=== PATIENT | female | born 1950 | race Caucasian/White ===

== ENCOUNTER 2017-05-17 11:59 | Day surgery (SDC) | payer MEDICARE, OTHER ==
[~2017-05-17 11:59] MED LIST: Acetaminophen TAB* 325 MG PO PRN; Buffered Lidocaine 0.9% SYRIN* 5 ML/SYR SYRINGE INTRADERM ONE
[2017-05-17] MEDS ORDERED: Midazolam* 1 MG/ML 2 ML VIAL (2 MG) ONE ×2 (13:17→13:33)
[2017-05-17 14:07] VITALS: BP 160/88
[2017-05-17] MEDS ORDERED: Tetracaine 0.5% OPTH.SOL 4 ML* 1 DROP BTL ONE (14:16)
[2017-05-17] MEDS ORDERED: Povidone Iodine 5% OPTH* 30 ML BTL ONE (14:16)
[2017-05-17] MEDS ORDERED: Cyclopentolate 1% OPTH.SOL* 2 ML BTL ONE (14:16)
[2017-05-17] MEDS ORDERED: Phenylephrine 2.5% OPTH.SOL* 2 ML BTL ONE (14:16)
[2017-05-17] MEDS ORDERED: acetaZOLAMIDE TAB* 250 MG ONE (14:16)
[2017-05-17] MEDS ORDERED: Tropicamide 1% OPTH.SOL* BTL ONE (14:16)
[2017-05-17] MEDS ORDERED: Ketorolac 0.5% OPHTH (NF) 0.5 % 5 ML BTL ONE (14:16)
[2017-05-17] MEDS ORDERED: Lidocaine 1% MPF* 2 ML VIAL ONE (14:16)
[2017-05-17] MEDS ORDERED: Neomycin/Polymy/Dex OPHTH.OIN* 3.5 GM ONE (14:16)
--- NOTE | 2017-05-18 12:38 | OP ---
DATE OF OPERATION: 05/17/17 - [facility] DATE OF : 46 SURGEON: Juan Gramajo MD ANESTHESIA: Monitored anesthesia care. PRE-OP DIAGNOSIS: Cataract, right eye. POST-OP DIAGNOSIS: Cataract, right eye. OPERATIVE PROCEDURE: Extracapsular cataract extraction of the right eye with intraocular lens implant. IMPLANTS: SN60WF 20.5 diopter lens to the right eye. COMPLICATIONS: None. DESCRIPTION OF PROCEDURE: The patient was given phenylephrine 2.5% and cyclopentolate 1% eye drops to the operative eye in the preoperative area. The patient was brought to the operating room where a time-out was taken to identify the correct patient, site, and side of surgery. The patient's right eye was prepped and draped in the usual sterile fashion with 5% Betadine. A second time- out was taken to verify the correct patient, site, and side of surgery and correct lens selection. A lid speculum was placed to the right eye. A 1-mm paracentesis blade was used to make a clear corneal incision in the superotemporal position. Preservative free 1% lidocaine was injected into the anterior chamber. DisCoVisc was then injected into the anterior chamber. A 2.75 mm keratome blade was used to make a triplanar incision at the inferotemporal position. A cystotome initiated a capsulorrhexis, which was completed with Utrata forceps in a continuous and curvilinear manner. Hydrodissection of the lens was performed with BSS on a cannula. The lens could be spun in a capsular bag. The phacoemulsification handpiece was used with a [id number] technique to remove the nucleus in its entirety with 25.54 CDE. The I/A handpiece then removed the residual cortical lens material. DisCoVisc was injected to inflate the capsular bag. The planned SN60WF 20.5 diopter lens was injected into the capsular bag. The residual DisCoVisc was removed from the eye with the I/A handpiece. The corneal incisions were hydrated and no leaks occurred at physiologic pressure around 20 mmHg per palpation. The lid speculum was removed and drapes removed. Maxitrol ointment was placed to the surface of the operative eye. An adhesive patch and shield was then placed on the operative eye. The patient was taken to the postoperative area in stable condition. [id number]/[facility] #: [id number] MTDD
== END 2017-05-17 14:20 | disposition home or self-care (01) ==
LOC: OREAST 11:59
PROVIDERS: ATTEND Student in an Organized Health Care Education/Training Program
DX: H25.811 Combined forms of age-related cataract, right eye (principal); H33.302 Unspecified retinal break, left eye; Z79.01 Long term (current) use of anticoagulants; I48.0 Paroxysmal atrial fibrillation; C43.9 Malignant melanoma of skin, unspecified; Z85.3 Personal history of malignant neoplasm of breast; E10.9 Type 1 diabetes mellitus without complications; Z79.4 Long term (current) use of insulin
CPT/HCPCS: A9270-GY; J2250; V2632

== ENCOUNTER 2018-07-18 08:50 | Day surgery (SDC) | payer MEDICARE, OTHER ==
[~2018-07-18 08:50] MED LIST changes: -Acetaminophen TAB* 325 MG PO PRN; -Buffered Lidocaine 0.9% SYRIN* 5 ML/SYR SYRINGE INTRADERM ONE; +Buffered Lidocaine 1% SYRIN* 1 ML/SYRINGE INTRADERM ONE; +Famotidine IV* 10 MG/ML 2 ML (20 mg) IV ONE; +Lactated Ringers 1000 ML Bag* 1,000 ML IV SCH; +Midazolam* 1 MG/ML 5 ML VIAL (5 MG) ONE; +fentaNYL* 50 MCG/ML 2 ML VIAL (100 MCG VIAL) ONE
[2018-07-18] MEDS ORDERED: Famotidine IV* 10 MG/ML 2 ML (20 mg) ONE (09:02)
[2018-07-18] MEDS ORDERED: ceFAZolin 2 GM PREMIX in ORs 2 GM/50 ML BAG ONE (09:02)
[2018-07-18] MEDS ORDERED: fentaNYL* 50 MCG/ML 2 ML VIAL (100 MCG VIAL) ONE (10:36)
[2018-07-18] MEDS ORDERED: HYDROmorphone INJ1* 1 MG/ML SYRINGE IV PRN (10:42)
[2018-07-18] MEDS ORDERED: oxyCODONE/Acetamin 5/325 MG* TAB PO PRN (10:42)
[2018-07-18] MEDS ORDERED: DiMENhydriNATE IV* 50 MG/ML VIAL IV PUSH PRN (10:42)
[2018-07-18] MEDS ORDERED: Naloxone* 0.4 MG/ML 1 ML VIAL IV PRN (10:42)
[2018-07-18] MEDS ORDERED: Succinylcholine* 20 MG/ML 10 ML VIAL ONE (10:57)
[2018-07-18] MEDS ORDERED: Propofol* 10 MG/ML 20 ML BTL ONE (10:57)
[2018-07-18] MEDS ORDERED: Ondansetron INJ* 2 MG/ML VIAL ONE (10:57)
[2018-07-18] MEDS ORDERED: Lidocaine 2% PF * 5 ML VIAL ONE (10:57)
[2018-07-18] MEDS ORDERED: Ketorolac INJ* 30 MG/ML 1 ML VIAL ONE (10:57)
[2018-07-18] MEDS ORDERED: DiMENhydriNATE IV* 50 MG/ML VIAL ONE (10:57)
[2018-07-18] MEDS ORDERED: Dexamethasone IV* 4 MG/ML 1 ML (4 MG) ONE (10:57)
[2018-07-18] MEDS ORDERED: HYDROmorphone INJ1* 1 MG/ML SYRINGE ONE (12:34)
[2018-07-18] MEDS ORDERED: Bupivacaine 0.25% SDV PF* 10 ML VIAL INJ ONE (12:36)
[2018-07-18 15:14] VITALS: BP 161/112
--- NOTE | 2018-07-18 20:28 | OP ---
DATE OF OPERATION: 07/18/18 - [facility] DATE OF : 46 SURGEON: Marcial Cox MD ASSISTANTS: TENNILLE Goodwin and TENNILLE Gonzales. An janitorial assistant was needed for the entirety of the procedure to aid in positioning of the arm and retraction. ANESTHESIOLOGIST: Dr. Wiseman. ANESTHESIA: General. 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 OPERATIVE PROCEDURE: Repair of right clavicle nonunion. NOTE: Please note that this procedure was substantially more difficult than typical open reduction and internal fixation of a clavicle due to the fact it was a nonunion requiring extensive dissection to debride all the interposing fibrous tissue as well as cleaning the edges of the bone so as to ensure good apposition and optimize healing potential. INDICATIONS: Gretchen is 67 years old. She had a long oblique clavicle fracture from the midshaft out towards the distal aspect. It never healed because she has multiple medical comorbidities. It has gone on to nonunion. It is painful. It is catching. We have talked about her options. She definitely wanted to proceed with surgery. ESTIMATED BLOOD LOSS: 20 mL. COMPLICATIONS: None. FINDINGS: See above and below. DESCRIPTION OF PROCEDURE: Gretchen was seen in the preoperative holding area. The right arm including the entirety of the arm and the clavicle were prescrubbed and then prepped and draped in the usual fashion. A time-out was performed. She was positioned in the lady beach chair position. I made a curvilinear incision over the anterior superior aspect of the clavicle. Dissection was carried down through the subcutaneous tissue. The clavipectoral fascia was opened in line with the bone. The nonunion site was encountered. I then took an extensive amount of time, probably took about an hour to debride all of the fibrous tissue very carefully so as to not injure any of the surrounding vascular structures or the lung. Ultimately, I was able to debride back all of the fibrous tissue to the very long oblique fracture. I was able to get a good apposition of the bone. I placed a couple of pointed reduction clamps. After I had it nicely clamped, I went ahead and placed three countersunk 2.4 mm lag screws of the Synthes Locking Modular Mini set. I then went ahead and trialed some different plates of the Synthes Clavicle Plate set. Ultimately, the plate that fit the best and provided what I thought was the best combination of proximal and distal fixation was the distal clavicle plate. This was bent to until it sat just perfectly on the bone. I pinned and clamped it into place. I brought in the C-arm and confirmed the location of the plate radiographically. I then placed 1 screw distally and then all three screws proximally. These were all cortical screws. I made sure the plate is nicely down against the bone. I then placed all of the locking screws distally. I did not place any additional screws along the long oblique fracture fragment, as I did not want to cause the bone to fracture around the 3 very nicely placed lag screws that were generating excellent compression. Once the neutralization plate was in place, I went ahead and irrigated out the wound. The clavipectoral fascia was closed with 3-0 Vicryl over the clavicle. Subcutaneous tissue was reapproximated with 3-0 Vicryl suture. She had a larger body habitus and so there was an inch to 2 inches of subcutaneous tissue there. Skin was closed with 3-0 Monocryl suture and Steri-Strips. 0.25% plain Marcaine had been infiltrated all about the operative area. Wound was dressed and she was taken to the recovery room in stable condition. [id number] #: [id number] ALICIA
== END 2018-07-18 15:06 | disposition home or self-care (01) ==
LOC: OR 08:50
PROVIDERS: ATTEND Orthopaedic Surgery Hand Surgery
DX: S42.021K Displaced fracture of shaft of right clavicle, subsequent encounter for fracture with nonunion (principal); Z85.3 Personal history of malignant neoplasm of breast; Z85.820 Personal history of malignant melanoma of skin; I48.2 Chronic atrial fibrillation; E11.9 Type 2 diabetes mellitus without complications; Z79.4 Long term (current) use of insulin; Z96.41 Presence of insulin pump (external) (internal); Z79.01 Long term (current) use of anticoagulants; G47.33 Obstructive sleep apnea (adult) (pediatric); Z87.891 Personal history of nicotine dependence; D56.3 Thalassemia minor; X58.XXXD Exposure to other specified factors, subsequent encounter; Y92.9 Unspecified place or not applicable
CPT/HCPCS: 76000; C1713; C1776; J0330; J0690; J1100; J1170; J1240; J1885; J2250; J2405; J2704; J3010; J3490

== ENCOUNTER 2020-06-30 12:13 | Observation (INO) ==
[2020-06-30 14:12] LABS: ABS Basophils 0.1 10^3/ul (0-0.2); ABS Eosinophils 0.1 10^3/ul (0-0.6); ABS Lymphocytes 0.8 10^3/ul (1.0-4.8); ABS Monocytes 1.3 10^3/ul (0-0.8); ABS Neutrophils 7.3 10^3/ul (1.5-7.7); ABS Nucleated RBC 0.1 10^3/ul; Eosinophil % 0.6 %; Hematocrit 34 % (35-47); Hemoglobin 10.7 g/dL (12.0-16.0); INR 2.55 (0.82-1.09); Lymphocyte % 8.3 %; Mean Corpuscular HGB Conc 31 g/dL (31-36); Mean Corpuscular Hemoglobin 22 pg (27-31); Mean Corpuscular Volume 69 fL (80-97); Mean Platelet Volume 9.8 fL (7.4-10.4); Nucleated Red Blood Cells % 0.5; Platelet Count 176 10^3/uL (150-450); Red Blood Count 4.95 10^6 /uL (3.70-4.87); Red Cell Distribution Width 18 % (10-15); White Blood Count 9.6 10^3/uL (3.5-10.8)
[2020-06-30 14:25] LABS: Albumin 4.2 g/dL (3.2-5.2); Albumin/Globulin Ratio 1.8 (1-3); EGFR African American 99.8 (>60); EGFR Non-African American 82.5 (>60); Globulin 2.3 g/dL (2-4); Potassium 4.1 mmol/L (3.5-5.0); Total Bilirubin 2.5 mg/dL (0.2-1.0); Total Protein 6.5 g/dL (6.4-8.9); Troponin I 0.01 ng/mL (<0.03)
[2020-06-30 14:33] LABS: Microcytosis 2+; Polychromasia 1+
[2020-06-30] MEDS ORDERED: Iodixanol (CONTRAST) 320 MG/ML 100 ML SDV IV ONE (15:22)
[2020-06-30] MEDS ORDERED: Ondansetron 4 mg VIAL 2 MG/ML 2 ml VIAL IV PRN (17:23)
[2020-06-30] MEDS ORDERED: Magnesium Hydroxide LIQ 30 ML UDC PO PRN (17:23)
[2020-06-30] MEDS ORDERED: Enoxaparin 40 MG/0.4 ML SYR SUBCUT SCH (18:00)
[2020-07-01] MEDS ORDERED: Regadenoson 0.4 MG/5 ML SYRINGE ONE (07:48)
[2020-07-01] MEDS ORDERED: Aminophylline 25 MG/ML VIAL ONE (07:48)
[2020-07-01 08:05] VITALS: BP 143/78
[2020-07-01 09:48] LABS: HDL Cholesterol 86.8 mg/dL
== END 2020-07-01 13:00 | disposition home or self-care (01) ==
LOC: ED 12:13 → MEDTELE 12:13
PROVIDERS: ADMIT Hospitalist; ATTEND Hospitalist

== ENCOUNTER 2022-05-03 10:09 | Inpatient (IN) ==
[2022-05-03] MEDS ORDERED: NS 0.9% 1000 ml BAG 1,000 ML IV ONE (11:19)
[2022-05-03] MEDS ORDERED: cefTRIAXone 1 gm/50 mL D5W 1 GM/50 ML BAG IV ONE (11:19)
[2022-05-03] MEDS ORDERED: Furosemide 40 mg/4 ml IV VIAL IV SLOW PU ONE (11:54)
[2022-05-03 12:15] LABS: ABS Lymphocytes 0.5 10^3/ul (1.0-4.8); ABS Monocytes 0.6 10^3/ul (0-0.8); ABS Neutrophils 5.5 10^3/ul (1.5-7.7); Hematocrit 31 % (35-47); Hemoglobin 9.9 g/dL (12.0-16.0); Lymphocyte % 8.2 %; Mean Corpuscular HGB Conc 32 g/dL (31-36); Mean Corpuscular Hemoglobin 21 pg (27-31); Mean Corpuscular Volume 66 fL (80-97); Mean Platelet Volume 9.2 fL (7.4-10.4); Nucleated Red Blood Cells % 0.2; Platelet Count 175 10^3/uL (150-450); Red Blood Count 4.72 10^6 /uL (3.70-4.87); Red Cell Distribution Width 17 % (10-15); White Blood Count 6.6 10^3/uL (3.5-10.8)
[2022-05-03 12:18] LABS: INR 3.85 (0.88-1.18)
[2022-05-03 13:29] LABS: Albumin/Globulin Ratio 2.1 (1-3); C Reactive Protein 84.74 mg/L (<8.01); Calcium 8.6 mg/dL (8.6-10.3); Creatinine, Serum 0.66 mg/dL (0.51-0.95); Globulin 1.9 g/dL (2-4); Phosphorus 3.7 mg/dL (2.5-5.0); Potassium 3.6 mmol/L (3.5-5.0); Total Protein 5.9 g/dL (6.4-8.9); eGFR CKD-EPI 92.6 (>60)
[2022-05-03] MEDS ORDERED: Iodixanol (CONTRAST) 320 MG/ML 100 ML SDV IV ONE (13:32)
[2022-05-03 13:35] LABS: High Sensitivity Troponin 1 Hr 9 pg/mL (<15)
[2022-05-03] MEDS ORDERED: Metoprolol Tartrate 5 mg VIAL 5 ml VIAL (1 mg/ml) ONE (14:37)
[2022-05-03] MEDS: Metoprolol Tartrate 5 mg VIAL 5 ml VIAL (1 mg/ml) IV ONE (14:48)
[2022-05-03] MEDS ORDERED: Metoprolol Succinate XL 200 mg TAB PO SCH (16:00)
[2022-05-03] MEDS ORDERED: Metoprolol Tartrate 5 mg VIAL 5 ml VIAL (1 mg/ml) IV PRN (16:18)
[2022-05-03] MEDS ORDERED: Metoprolol Tartrate 5 mg VIAL 5 ml VIAL (1 mg/ml) IV ONE (16:18)
[2022-05-03] MEDS: Albuterol/Ipratropium NEB.SOL (2.5/0.5 MG) 3 ML NEB.SOLN INH SCH ×2 (17:15→21:03)
[2022-05-03 17:53] LABS: Urine Appearance Clear; Urine Bilirubin Negative (Negative); Urine Blood 1+ (Negative); Urine Color Yellow; Urine Glucose Negative (Negative); Urine Ketones Negative (Negative); Urine Nitrite Negative (Negative); Urine Protein Negative (Negative); Urine Specific Gravity 1.038 (1.002-1.030); Urine Urobilinogen Negative (Negative)
[2022-05-03 18:10] LABS: Urine Bacteria Absent (Absent); Urine Red Blood Cell Trace(0-2/hpf) (Absent); Urine Squamous Epithelial Cell Present (Absent); Urine White Blood Cell Absent (Absent)
[2022-05-03] MEDS ORDERED: Magnesium Sulf 4 GM/100 ML IV 4,000 MG/100 ML BAG IVPB ONE (19:00)
[2022-05-03] MEDS ORDERED: Dextrose 50% Syringe 50 ml 25 GM/50 ML SYRINGE IV PUSH PRN (19:06)
[2022-05-03 19:51] LABS: TSH Ultra Thyroid Stim Horm 0.64 mcIU/mL (0.34-5.60)
[2022-05-03] MEDS ORDERED: Insulin LISPRO FOR INSULIN PUMP SUBCUT SCH (23:00)
[2022-05-04] MEDS: Metoprolol Tartrate 5 mg VIAL 5 ml VIAL (1 mg/ml) IV ONE (00:44)
[2022-05-04] MEDS: guaiFENesin/CODIENE 100mg/10mg 5 ML UDC PO PRN ×4 (02:02→20:39)
[2022-05-04] MEDS: Albuterol/Ipratropium NEB.SOL (2.5/0.5 MG) 3 ML NEB.SOLN INH SCH ×3 (05:27→22:27)
[2022-05-04 07:23] LABS: ABS Lymphocytes 0.5 10^3/ul (1.0-4.8); ABS Monocytes 0.7 10^3/ul (0-0.8); ABS Neutrophils 4.3 10^3/ul (1.5-7.7); Eosinophil % 0.1 %; Hematocrit 30 % (35-47); Hemoglobin 9.6 g/dL (12.0-16.0); Mean Corpuscular HGB Conc 32 g/dL (31-36); Mean Corpuscular Hemoglobin 21 pg (27-31); Mean Corpuscular Volume 66 fL (80-97); Mean Platelet Volume 9.3 fL (7.4-10.4); Nucleated Red Blood Cells % 0.2; Platelet Count 142 10^3/uL (150-450); Red Blood Count 4.53 10^6 /uL (3.70-4.87); Red Cell Distribution Width 17 % (10-15); White Blood Count 5.5 10^3/uL (3.5-10.8)
[2022-05-04 08:38] LABS: Anion Gap 12 mmol/L (2-11); Blood Urea Nitrogen 9 mg/dL (6-24); CO2 Carbon Dioxide 28 mmol/L (22-32); Chloride 90 mmol/L (101-111); Creatinine, Serum 0.53 mg/dL (0.51-0.95); Glucose 111 mg/dL (70-100); Magnesium 1.7 mg/dL (1.9-2.7); Potassium 3.1 mmol/L (3.5-5.0); Sodium 130 mmol/L (135-145); eGFR CKD-EPI 97.6 (>60)
[2022-05-04] MEDS ORDERED: cefTRIAXone 1 gm/50 mL D5W 1 GM/50 ML BAG IV SCH (09:00)
[2022-05-04] MEDS: Albuterol HFA INHALER 8 gm MDI INH PRN (09:20)
[2022-05-04] MEDS ORDERED: Magnesium Sulfate IV 3 GM in NS 0.9% 100 ml BAG 100 ML IVPB ONE (13:45)
[2022-05-04] MEDS ORDERED: Potassium Chlor 20 meq TAB.ER PO ONE (13:46)
[2022-05-04 14:24] LABS: % Iron Saturation 8 % (15-55); .Transferrin 172 mg/dL (203-362); Iron < 20 ug/dL (50-212); Total Iron Binding Capacity 241 mcg/dL (250-450); Transferrin 172 mg/dL (203-362); Unsaturated Iron Binding 221 ug/dL
[2022-05-04 14:44] LABS: Ferritin 396.8 ng/mL (11-307)
[2022-05-05 06:24] LABS: ABS Lymphocytes 0.8 10^3/ul (1.0-4.8); ABS Monocytes 0.7 10^3/ul (0-0.8); Hematocrit 29 % (35-47); Hemoglobin 9.2 g/dL (12.0-16.0); Lymphocyte % 17.7 %; Mean Corpuscular HGB Conc 32 g/dL (31-36); Mean Corpuscular Hemoglobin 21 pg (27-31); Mean Corpuscular Volume 66 fL (80-97); Nucleated Red Blood Cells % 0.2; Platelet Count 135 10^3/uL (150-450); Red Blood Count 4.38 10^6 /uL (3.70-4.87); Red Cell Distribution Width 17 % (10-15); White Blood Count 4.6 10^3/uL (3.5-10.8)
[2022-05-05 06:37] LABS: Creatinine, Serum 0.49 mg/dL (0.51-0.95); Magnesium 1.7 mg/dL (1.9-2.7); Potassium 3.4 mmol/L (3.5-5.0); eGFR CKD-EPI 99.5 (>60)
[2022-05-05] MEDS: Albuterol/Ipratropium NEB.SOL (2.5/0.5 MG) 3 ML NEB.SOLN INH SCH ×3 (07:14→21:45)
[2022-05-05] MEDS: cefTRIAXone 1 gm/50 mL D5W 1 GM/50 ML BAG IV SCH (08:13)
[2022-05-05] MEDS: guaiFENesin/CODIENE 100mg/10mg 5 ML UDC PO PRN ×2 (08:14→23:01)
[2022-05-05] MEDS ORDERED: Magnesium Sulfate IV 3 GM in NS 0.9% 100 ml BAG 100 ML IVPB ONE (09:10)
[2022-05-05] MEDS: Albuterol HFA INHALER 8 gm MDI INH PRN (10:46)
[2022-05-06] MEDS: Albuterol/Ipratropium NEB.SOL (2.5/0.5 MG) 3 ML NEB.SOLN INH SCH ×3 (06:59→19:17)
[2022-05-06 07:05] LABS: Hematocrit 28 % (35-47); Hemoglobin 9.2 g/dL (12.0-16.0); Mean Corpuscular HGB Conc 33 g/dL (31-36); Mean Corpuscular Hemoglobin 21 pg (27-31); Mean Corpuscular Volume 65 fL (80-97); Mean Platelet Volume 8.8 fL (7.4-10.4); Platelet Count 151 10^3/uL (150-450); Red Blood Count 4.29 10^6 /uL (3.70-4.87); Red Cell Distribution Width 16 % (10-15); White Blood Count 3.8 10^3/uL (3.5-10.8)
[2022-05-06 07:10] LABS: Calcium 8.6 mg/dL (8.6-10.3); Creatinine, Serum 0.48 mg/dL (0.51-0.95); Magnesium 1.8 mg/dL (1.9-2.7); Potassium 3.5 mmol/L (3.5-5.0)
[2022-05-06 07:57] LABS: ABS Lymphocytes 0.6 10^3/ul (1.0-4.8); ABS Monocytes 0.6 10^3/ul (0-0.8); ABS Neutrophils 2.6 10^3/ul (1.5-7.7); Lymphocyte % 15.1 %; Nucleated Red Blood Cells % 0.3
[2022-05-06] MEDS: cefTRIAXone 1 gm/50 mL D5W 1 GM/50 ML BAG IV SCH (08:16)
[2022-05-06] MEDS: methylPREDNISolone SOD SUCC 40 mg/ml 1 ml VIAL IV SCH ×2 (08:17→17:23)
[2022-05-06] MEDS ORDERED: Metoprolol Succinate XL 200 mg TAB PO SCH (09:00)
[2022-05-06] MEDS ORDERED: Ferric Gluconate IV 250 MG in NS 0.9% 250 ml 200 ML IVPB SCH (16:00)
[2022-05-07] MEDS: methylPREDNISolone SOD SUCC 40 mg/ml 1 ml VIAL IV SCH ×2 (01:09→09:59)
[2022-05-07] MEDS: guaiFENesin/CODIENE 100mg/10mg 5 ML UDC PO PRN ×2 (01:15→07:46)
[2022-05-07 05:50] LABS: Hematocrit 31 % (35-47); Hemoglobin 9.7 g/dL (12.0-16.0); Mean Corpuscular HGB Conc 31 g/dL (31-36); Mean Corpuscular Hemoglobin 20 pg (27-31); Mean Corpuscular Volume 64 fL (80-97); Mean Platelet Volume 8.4 fL (7.4-10.4); Platelet Count 214 10^3/uL (150-450); Red Blood Count 4.85 10^6 /uL (3.70-4.87); Red Cell Distribution Width 17 % (10-15); White Blood Count 4.7 10^3/uL (3.5-10.8)
[2022-05-07 06:09] LABS: Calcium 9.2 mg/dL (8.6-10.3); Creatinine, Serum 0.52 mg/dL (0.51-0.95); Magnesium 1.7 mg/dL (1.9-2.7); Potassium 3.8 mmol/L (3.5-5.0)
[2022-05-07] MEDS: Albuterol/Ipratropium NEB.SOL (2.5/0.5 MG) 3 ML NEB.SOLN INH SCH ×2 (07:05→12:58)
[2022-05-07] MEDS ORDERED: Magnesium Sulfate IV 3 GM in NS 0.9% 100 ml BAG 100 ML IVPB ONE (07:06)
[2022-05-07] MEDS: cefTRIAXone 1 gm/50 mL D5W 1 GM/50 ML BAG IV SCH (09:59)
[2022-05-07 14:15] VITALS: BP 135/71
== END 2022-05-07 15:37 | disposition home or self-care (01) | DRG 193 ==
LOC: ED 10:09 → EDHOLD 10:09 → SUATTDRO 05-04 10:34 → EDHOLD 05-04 12:15 → MEDTELE 05-04 12:23
PROVIDERS: ADMIT Family Medicine; ATTEND Hospitalist

== ENCOUNTER 2023-01-19 05:45 | Inpatient (IN) ==
[~2023-01-19 05:45] MED LIST changes: +Buffered Lidocaine 1% SYRIN 1 ml INTRADERM ONE; -Buffered Lidocaine 1% SYRIN* 1 ML/SYRINGE INTRADERM ONE; -Famotidine IV* 10 MG/ML 2 ML (20 mg) IV ONE; +HYDROcodone/ACETAMIN 5/325 mg TAB PO PRN; -Lactated Ringers 1000 ML Bag* 1,000 ML IV SCH; +Metoclopramide 5 MG/ML VIAL (10 mg) IV PRN; -Midazolam* 1 MG/ML 5 ML VIAL (5 MG) ONE; +Naloxone 0.4 mg VIAL 0.4 mg/ml 1 ml VIAL IV PRN; +Ondansetron 4 mg VIAL 2 MG/ML 2 ml VIAL IV PRN; +Scopolamine 1 mg/72hr PATCH TRANSDERM ONE; +fentaNYL 100 mcg/2 ml 50 MCG/ML VIAL IV PRN; -fentaNYL* 50 MCG/ML 2 ML VIAL (100 MCG VIAL) ONE
[2023-01-19] MEDS ORDERED: Scopolamine 1 mg/72hr PATCH ONE (06:08)
[2023-01-19 06:35] LABS: Rapid COVID-19 Molecular Undetected (Undetected)
[2023-01-19] MEDS ORDERED: ceFAZolin 2 GM in NS PREMIX 2 GM/100 ML BAG IVPB ONE (06:36)
[2023-01-19] MEDS ORDERED: Lidocaine 2% PF 5 ML VIAL ONE (07:09)
[2023-01-19] MEDS ORDERED: Ondansetron 4 mg VIAL 2 MG/ML 2 ml VIAL ONE ×2 (07:09→13:15)
[2023-01-19] MEDS ORDERED: Propofol 10 MG/ML 20 ML BTL ONE (07:09)
[2023-01-19] MEDS ORDERED: Dexamethasone IV 4 MG/ML VIAL 1 ml VIAL ONE (07:09)
[2023-01-19] MEDS ORDERED: Rocuronium 50 mg VIAL 10 mg/ml 5 ml VIAL (50 mg) ONE ×3 (07:10→10:57)
[2023-01-19] MEDS ORDERED: Phenylephrine IV 10 MG/ML 1 ml VIAL ONE (07:10)
[2023-01-19] MEDS ORDERED: fentaNYL 250 mcg/5 ml 50 MCG/ML 5 ml VIAL (250 MCG) ONE (07:10)
[2023-01-19] MEDS ORDERED: Midazolam 2 mg/2 ml VIAL 1 mg/ml 2 ml VIAL (2 mg) ONE (07:10)
[2023-01-19] MEDS ORDERED: Heparin 5000 UNITS/ML 1 mL VIAL ONE (07:28)
[2023-01-19] MEDS ORDERED: Lidocaine 1% w EPI 1:100,000 MDV 20 ML VIAL ONE (07:37)
[2023-01-19] MEDS ORDERED: Bupivacaine 0.5% SDV PF 30ML VIAL ONE ×2 (07:37→07:38)
[2023-01-19] MEDS ORDERED: Ertapenem 1 GM in NS 0.9% 50 ML IVPB ONE (08:00)
[2023-01-19] MEDS ORDERED: HYDROmorphone 0.5 MG/0.5 ML SYRINGE ONE (12:27)
[2023-01-19] MEDS ORDERED: Metoclopramide 5 MG/ML VIAL (10 mg) ONE (13:15)
[2023-01-19] MEDS ORDERED: Dextrose 50% Syringe 50 ml 25 GM/50 ML SYRINGE IV PUSH PRN (13:23)
[2023-01-19] MEDS ORDERED: fentaNYL 100 mcg/2 ml 50 MCG/ML VIAL ONE (13:25)
[2023-01-19] MEDS ORDERED: HYDROmorphone 0.5 MG/0.5 ML SYRINGE IV SLOW PU PRN (13:27)
[2023-01-19] MEDS ORDERED: HYDROmorphone 1 MG/1 ML SYRINGE IV SLOW PU PRN (13:27)
[2023-01-19] MEDS ORDERED: Ondansetron 4 mg VIAL 2 MG/ML 2 ml VIAL IV PRN (13:28)
[2023-01-19] MEDS ORDERED: NON FORMULARY MED (Zinc 50 mg Tablet) PO SCH (13:30)
[2023-01-19] MEDS: Lactated Ringers 1000 ml BAG 1,000 ML IV SCH ×2 (15:52→23:40)
[2023-01-19] MEDS: Heparin 5000 UNITS/ML 1 mL VIAL SUBCUT SCH ×2 (15:53→21:12)
[2023-01-20] MEDS: Heparin 5000 UNITS/ML 1 mL VIAL SUBCUT SCH ×3 (06:14→21:24)
[2023-01-20] MEDS: Lactated Ringers 1000 ml BAG 1,000 ML IV SCH (07:33)
[2023-01-20] MEDS: Potassium Chlor 20 meq TAB.ER PO SCH (08:19)
[2023-01-20] MEDS ORDERED: Insulin LISPRO FOR INSULIN PUMP SUBCUT SCH (13:00)
[2023-01-21] MEDS: Heparin 5000 UNITS/ML 1 mL VIAL SUBCUT SCH (06:06)
[2023-01-21] MEDS ORDERED: Vitamin THERAPEUTIC TAB PO SCH (09:00)
[2023-01-21] MEDS: Potassium Chlor 20 meq TAB.ER PO SCH (09:38)
[2023-01-21 13:34] VITALS: BP 108/68
== END 2023-01-21 16:45 | disposition home or self-care (01) | DRG 331 ==
LOC: OR 05:45 → SSU 15:03
PROVIDERS: ADMIT Surgery; ATTEND Surgery

== ENCOUNTER 2023-04-27 15:14 | Inpatient (IN) ==
[2023-04-27 16:25] LABS: ABS Lymphocytes 0.8 10^3/uL (1.0-4.8); ABS Monocytes 1.2 10^3/uL (0.0-0.9); ABS Neutrophils 2.7 10^3/uL (1.5-7.6); ABS Nucleated RBC 0.01 10^3/ul; Eosinophil % 0.9 %; Hematocrit 29.1 % (35-45); Hemoglobin 9.5 g/dL (11.5-14.3); Lymphocyte % 16.9 %; Mean Corpuscular Hgb Conc 32.5 g/dL (31-36); Mean Corpuscular Volume 67.8 fL (80-97); Mean Platelet Volume 8.7 fL (7.5-11.2); Nucleated Red Blood Cells % 0.2 %/100WBC (0.0-0.8); Platelet Count 158 10^3/uL (150-450); Red Blood Count 4.29 10^6/uL (3.63-4.92); White Blood Count 4.7 10^3/uL (3.8-11.8)
[2023-04-27] MEDS: Potassium Chlor 20 meq TAB.ER PO ONE (16:39)
[2023-04-27] MEDS: Lactated Ringers 1000 ml BAG 1,000 ML IV ONE (16:40)
[2023-04-27] MEDS: KCL 10 MEQ/50 ML IVPREMIX 10 MEQ/50 ML BAG IV ONE (16:40)
[2023-04-27 17:18] LABS: Albumin 3.2 g/dL (3.2-5.2); Albumin/Globulin Ratio 1.8 (1-3); Calcium 6.9 mg/dL (8.6-10.3); Creatinine, Serum 0.65 mg/dL (0.51-0.95); Globulin 1.8 g/dL (2-4); Magnesium 1.4 mg/dL (1.9-2.7); Potassium 2.5 mmol/L (3.5-5.0); Total Bilirubin 1.2 mg/dL (0.2-1.0); eGFR CKD-EPI 92.3 (>60)
[2023-04-27 17:53] LABS: Urine Appearance Clear; Urine Blood Negative (Negative); Urine Color Yellow; Urine Ketones Trace (Negative); Urine Specific Gravity 1.025 (1.002-1.030)
[2023-04-27 17:54] LABS: Urine Nitrite Negative (Negative); Urine Protein Trace (Negative); Urine Urobilinogen 0.2 (Negative) (Negative)
[2023-04-27 17:55] LABS: Urine White Blood Cell Absent /HPF (0-Trace)
[2023-04-27 17:56] LABS: Urine Bacteria Absent /HPF (Absent); Urine Red Blood Cell Absent /HPF (0-Trace); Urine Squamous Epithelial Cell Present /HPF (Absent)
[2023-04-27] MEDS: Magnesium Sulf 4 GM/100 ML IV 4,000 MG/100 ML BAG IVPB ONE (18:02)
[2023-04-27] MEDS: Morphine 4 MG/ML VIAL (1 ml) IV ONE (18:03)
[2023-04-27] MEDS ORDERED: Dextrose 50% Syringe 50 ml 25 GM/50 ML SYRINGE IV PUSH PRN (23:58)
[2023-04-28 00:22] LABS: Calcium 7.3 mg/dL (8.6-10.3); Creatinine, Serum 0.54 mg/dL (0.51-0.95); Potassium 2.8 mmol/L (3.5-5.0); eGFR CKD-EPI 96.6 (>60)
[2023-04-28 00:28] LABS: C Reactive Protein 22.95 mg/L (<8.01)
[2023-04-28] MEDS: Acetaminophen IV 1 GM/100ML 1,000 MG/100 ML BAG IV PRN (00:37)
[2023-04-28] MEDS: Lactated Ringers 1000 ml BAG 1,000 ML IV SCH (00:37)
[2023-04-28] MEDS: KCL 20 MEQ/100 ML IVPREMIX 20 MEQ/100 ML BAG IV SCH ×2 (00:38→12:32)
[2023-04-28 00:49] LABS: Erythrocyte Sed Rate 19 mm/Hr (0-29)
[2023-04-28] MEDS: Morphine 2 MG/ML SYRINGE IV PRN (05:31)
[2023-04-28 06:08] LABS: ABS Lymphocytes 0.7 10^3/uL (1.0-4.8); ABS Monocytes 1.1 10^3/uL (0.0-0.9); ABS Neutrophils 2.6 10^3/uL (1.5-7.6); ABS Nucleated RBC 0.01 10^3/ul; Eosinophil % 1.1 %; Hematocrit 26.5 % (35-45); Hemoglobin 8.7 g/dL (11.5-14.3); Lymphocyte % 16.3 %; Mean Corpuscular Hemoglobin 22.1 pg (27-33); Mean Corpuscular Hgb Conc 32.7 g/dL (31-36); Mean Corpuscular Volume 67.6 fL (80-97); Mean Platelet Volume 8.7 fL (7.5-11.2); Nucleated Red Blood Cells % 0.1 %/100WBC (0.0-0.8); Platelet Count 145 10^3/uL (150-450); Red Blood Count 3.92 10^6/uL (3.63-4.92); Red Cell Distribution Width 21.5 % (12-17); White Blood Count 4.5 10^3/uL (3.8-11.8)
[2023-04-28 06:21] LABS: Calcium 7.4 mg/dL (8.6-10.3); Creatinine, Serum 0.51 mg/dL (0.51-0.95); Potassium 2.9 mmol/L (3.5-5.0); eGFR CKD-EPI 97.9 (>60)
[2023-04-28] MEDS: Potassium Chlor 20 meq TAB.ER PO SCH (09:59)
[2023-04-28] MEDS ORDERED: Dextrose 50% Syringe 50 ml 25 GM/50 ML SYRINGE IV PUSH PRN (13:08)
[2023-04-28] MEDS: Dextrose 50% Syringe 50 ml 25 GM/50 ML SYRINGE IV PUSH PRN (13:47)
[2023-04-28] MEDS: Psyllium PAK PO PRN (16:47)
[2023-04-28 20:54] LABS: Calcium 7.6 mg/dL (8.6-10.3); Creatinine, Serum 0.48 mg/dL (0.51-0.95); Magnesium 1.6 mg/dL (1.9-2.7); Potassium 3.7 mmol/L (3.5-5.0); eGFR CKD-EPI 99.3 (>60)
[2023-04-28] MEDS: Magnesium Sulf 4 GM/100 ML IV 4,000 MG/100 ML BAG IVPB ONE (22:30)
[2023-04-28] MEDS: Potassium Chlor 10 meq TAB PO ONE (22:31)
[2023-04-29 06:03] LABS: ABS Lymphocytes 0.5 10^3/uL (1.0-4.8); ABS Monocytes 1.3 10^3/uL (0.0-0.9); ABS Neutrophils 2.2 10^3/uL (1.5-7.6); ABS Nucleated RBC 0.01 10^3/ul; Eosinophil % 0.6 %; Hematocrit 28.7 % (35-45); Hemoglobin 9.2 g/dL (11.5-14.3); Lymphocyte % 12.2 %; Mean Corpuscular Hemoglobin 22.2 pg (27-33); Mean Corpuscular Hgb Conc 32.2 g/dL (31-36); Mean Corpuscular Volume 69.1 fL (80-97); Mean Platelet Volume 8.8 fL (7.5-11.2); Nucleated Red Blood Cells % 0.2 %/100WBC (0.0-0.8); Platelet Count 149 10^3/uL (150-450); Red Blood Count 4.15 10^6/uL (3.63-4.92); Red Cell Distribution Width 21.5 % (12-17); White Blood Count 4.1 10^3/uL (3.8-11.8)
[2023-04-29 09:00] LABS: Calcium 7.8 mg/dL (8.6-10.3); Creatinine, Serum 0.57 mg/dL (0.51-0.95); eGFR CKD-EPI 95.3 (>60)
[2023-04-29] MEDS: Insulin GLARGINE 100 un/ml 10 ml VIAL SUBCUT SCH (09:15)
[2023-04-29 11:37] LABS: Cytomegalovirus IgG Antibody Negative (Negative)
[2023-04-30 06:10] LABS: Hematocrit 29.1 % (35-45); Hemoglobin 9.3 g/dL (11.5-14.3); Mean Corpuscular Hgb Conc 31.8 g/dL (31-36); Mean Platelet Volume 8.7 fL (7.5-11.2); Platelet Count 169 10^3/uL (150-450); Red Blood Count 4.21 10^6/uL (3.63-4.92); Red Cell Distribution Width 21.7 % (12-17); White Blood Count 3.3 10^3/uL (3.8-11.8)
[2023-04-30 06:25] LABS: Calcium 7.7 mg/dL (8.6-10.3); Creatinine, Serum 0.51 mg/dL (0.51-0.95); Magnesium 1.3 mg/dL (1.9-2.7); Potassium 3.1 mmol/L (3.5-5.0); eGFR CKD-EPI 97.9 (>60)
[2023-04-30] MEDS: Potassium Chlor 20 meq TAB.ER PO ONE ×3 (08:29→18:17)
[2023-04-30] MEDS: Magnesium Sulf 4 GM/100 ML IV 4,000 MG/100 ML BAG IVPB ONE (09:07)
[2023-04-30] MEDS ORDERED: KCL 20 MEQ/100 ML IVPREMIX 20 MEQ/100 ML BAG IV SCH (13:00)
[2023-04-30 14:30] LABS: Adenovirus F40/41 Negative (Negative); Astrovirus Negative (Negative); Cryptosporidium species Negative (Negative); Cyclospora cayetanensis Negative (Negative); Entamoeba histolytica Negative (Negative); Enteroaggregative E.coli(EAEC) Negative (Negative); Enteropathogenic Ecoli(EPEC) Negative (Negative); Enterotoxigenic Ecoli(ETEC) Negative (Negative); Norovirus GI/GII Negative (Negative); Plesiomonas shigelloides Negative (Negative); Salmonella species Negative (Negative); Sapovirus Negative (Negative); Shiga toxin producing E. coli Negative (Negative); Shigella/Enteroinvasive E.coli Negative (Negative); Specimen Source STOOL; Vibrio cholerae Negative (Negative); Yersinia species Negative (Negative)
[2023-04-30 16:06] LABS: Calcium 7.8 mg/dL (8.6-10.3); Creatinine, Serum 0.5 mg/dL (0.51-0.95); eGFR CKD-EPI 98.4 (>60)
[2023-05-01] MEDS: Bismuth Subsalicylate (BTL) 525 MG/30 ML (BULK BTL) PO PRN (02:18)
[2023-05-01 07:08] LABS: Hematocrit 27.2 % (35-45); Hemoglobin 8.8 g/dL (11.5-14.3); Mean Corpuscular Hemoglobin 22.4 pg (27-33); Mean Corpuscular Hgb Conc 32.5 g/dL (31-36); Mean Corpuscular Volume 68.9 fL (80-97); Mean Platelet Volume 8.7 fL (7.5-11.2); Platelet Count 149 10^3/uL (150-450); Red Blood Count 3.95 10^6/uL (3.63-4.92); White Blood Count 2.8 10^3/uL (3.8-11.8)
[2023-05-01 07:53] LABS: Calcium 7.7 mg/dL (8.6-10.3); Creatinine, Serum 0.47 mg/dL (0.51-0.95); Magnesium 1.4 mg/dL (1.9-2.7); Potassium 3.1 mmol/L (3.5-5.0); eGFR CKD-EPI 99.8 (>60)
[2023-05-01] MEDS: Potassium Chloride LIQUID 20 MEQ/15 ML LIQUID PO ONE (09:58)
[2023-05-01] MEDS: Magnesium Sulf 4 GM/100 ML IV 4,000 MG/100 ML BAG IVPB ONE (09:58)
[2023-05-01] MEDS: Insulin GLARGINE 100 un/ml 10 ml VIAL SUBCUT SCH (09:59)
[2023-05-02 07:11] LABS: ABS Eosinophils 0.1 10^3/uL (0.0-0.5); ABS Lymphocytes 0.9 10^3/uL (1.0-4.8); ABS Monocytes 0.7 10^3/uL (0.0-0.9); ABS Nucleated RBC 0.01 10^3/ul; Eosinophil % 5.1 %; Hematocrit 26.2 % (35-45); Hemoglobin 8.5 g/dL (11.5-14.3); Lymphocyte % 32.6 %; Mean Corpuscular Hemoglobin 22.3 pg (27-33); Mean Corpuscular Hgb Conc 32.5 g/dL (31-36); Mean Corpuscular Volume 68.5 fL (80-97); Mean Platelet Volume 8.5 fL (7.5-11.2); Nucleated Red Blood Cells % 0.2 %/100WBC (0.0-0.8); Platelet Count 144 10^3/uL (150-450); Red Blood Count 3.82 10^6/uL (3.63-4.92); Red Cell Distribution Width 22.2 % (12-17); White Blood Count 2.7 10^3/uL (3.8-11.8)
[2023-05-02 07:22] LABS: Calcium 7.6 mg/dL (8.6-10.3); Creatinine, Serum 0.48 mg/dL (0.51-0.95); Magnesium 1.3 mg/dL (1.9-2.7); Phosphorus 3.3 mg/dL (2.5-5.0); eGFR CKD-EPI 99.3 (>60)
[2023-05-02] MEDS: Magnesium Sulf 4 GM/100 ML IV 4,000 MG/100 ML BAG IVPB ONE ×2 (08:35→22:05)
[2023-05-02] MEDS: Potassium Chlor 20 meq TAB.ER PO SCH (08:36)
[2023-05-02] MEDS: Lactated Ringers 1000 ml BAG 1,000 ML IV SCH (12:40)
[2023-05-02] MEDS: Potassium Chlor 20 meq TAB.ER PO ONE (21:58)
[2023-05-03 02:08] LABS: Calcium 7.4 mg/dL (8.6-10.3); Creatinine, Serum 0.51 mg/dL (0.51-0.95); Magnesium 2.5 mg/dL (1.9-2.7); Potassium 3.8 mmol/L (3.5-5.0); eGFR CKD-EPI 97.9 (>60)
[2023-05-03 05:35] LABS: Hematocrit 26.2 % (35-45); Hemoglobin 8.3 g/dL (11.5-14.3); Mean Corpuscular Hgb Conc 31.8 g/dL (31-36); Mean Platelet Volume 8.7 fL (7.5-11.2); Platelet Count 145 10^3/uL (150-450); Red Blood Count 3.79 10^6/uL (3.63-4.92); Red Cell Distribution Width 22.3 % (12-17); White Blood Count 2.6 10^3/uL (3.8-11.8)
[2023-05-03 06:11] LABS: Anion Gap 8 mmol/L (2-16); Blood Urea Nitrogen 5 mg/dL (6-24); CO2 Carbon Dioxide 17 mmol/L (22-32); Chloride 118 mmol/L (101-111); Creatinine, Serum < 0.30 mg/dL (0.51-0.95); Glucose 131 mg/dL (70-100); Magnesium 1.3 mg/dL (1.9-2.7); Potassium 2.8 mmol/L (3.5-5.0); Sodium 143 mmol/L (135-145); eGFR CKD-EPI 111.2 (>60)
[2023-05-03 06:44] LABS: ALT 13 U/L (7-52); AST 14 U/L (13-39); Albumin 1.7 g/dL (3.2-5.2); Albumin/Globulin Ratio 1.3 (1-3); Alkaline Phosphatase 92 U/L (35-149); Direct Bilirubin 0.1 mg/dL (0.03-0.18); Globulin 1.3 g/dL (2-4); Indirect Bilirubin 0.4 mg/dL (0.3-1.0); Total Bilirubin 0.5 mg/dL (0.2-1.0); Total Protein < 3.0 g/dL (6.4-8.9)
[2023-05-03] MEDS ORDERED: Calcium Gluconate 1 GM/10 ML VIAL (in Pyxis) IV PUSH ONE (07:16)
[2023-05-03] MEDS: KCL 20 MEQ/100 ML IVPREMIX 20 MEQ/100 ML BAG IV SCH (08:20)
[2023-05-03] MEDS: Magnesium Sulf 4 GM/100 ML IV 4,000 MG/100 ML BAG IVPB ONE ×2 (08:24→16:05)
[2023-05-03] MEDS ORDERED: CALCIUM GLUCONATE 1GM/50ML NS BAG IV SCH (08:30)
[2023-05-03] MEDS: Lactated Ringers 1000 ml BAG 1,000 ML IV SCH (10:53)
[2023-05-03] MEDS: Potassium Chlor 20 meq TAB.ER PO ONE (16:03)
[2023-05-03 16:36] LABS: Creatinine, Serum 0.62 mg/dL (0.51-0.95); Potassium 4.3 mmol/L (3.5-5.0); eGFR CKD-EPI 93.4 (>60)
[2023-05-03 17:24] LABS: Albumin 2.9 g/dL (3.2-5.2); Albumin/Globulin Ratio 1.3 (1-3); Globulin 2.3 g/dL (2-4); Total Bilirubin 0.6 mg/dL (0.2-1.0); Total Protein 5.2 g/dL (6.4-8.9)
[2023-05-03] MEDS: Diphenoxylat/Atrop 2.5-0.025mg TAB PO SCH (20:38)
[2023-05-04 04:45] LABS: Hematocrit 27.6 % (35-45); Hemoglobin 8.9 g/dL (11.5-14.3); Mean Corpuscular Hemoglobin 22.1 pg (27-33); Mean Corpuscular Hgb Conc 32.1 g/dL (31-36); Mean Corpuscular Volume 68.8 fL (80-97); Mean Platelet Volume 8.5 fL (7.5-11.2); Platelet Count 161 10^3/uL (150-450); Red Blood Count 4.01 10^6/uL (3.63-4.92); Red Cell Distribution Width 22.8 % (12-17); White Blood Count 3.6 10^3/uL (3.8-11.8)
[2023-05-04 04:57] LABS: ABS Eosinophils 0.1 10^3/uL (0.0-0.5); ABS Lymphocytes 1.2 10^3/uL (1.0-4.8); ABS Monocytes 0.8 10^3/uL (0.0-0.9); ABS Neutrophils 1.5 10^3/uL (1.5-7.6); ABS Nucleated RBC 0.01 10^3/ul; Eosinophil % 3.9 %; Lymphocyte % 32.9 %; Nucleated Red Blood Cells % 0.3 %/100WBC (0.0-0.8)
[2023-05-04 05:20] LABS: Albumin 2.8 g/dL (3.2-5.2); Albumin/Globulin Ratio 1.5 (1-3); Calcium 8.1 mg/dL (8.6-10.3); Creatinine, Serum 0.54 mg/dL (0.51-0.95); Globulin 1.9 g/dL (2-4); Magnesium 1.9 mg/dL (1.9-2.7); Potassium 4.9 mmol/L (3.5-5.0); Total Bilirubin 0.7 mg/dL (0.2-1.0); Total Protein 4.7 g/dL (6.4-8.9); eGFR CKD-EPI 96.6 (>60)
[2023-05-04] MEDS: Magnesium Sulfate 2 gm BAG 2 GM/50 ML BAG IVPB ONE (08:11)
[2023-05-04] MEDS: Lactated Ringers 1000 ml BAG 1,000 ML IV SCH (12:36)
[2023-05-04 16:09] LABS: Norovirus G1 PCR Positive (Negative); Norovirus G2 PCR Negative (Negative)
[2023-05-05 06:37] LABS: Hematocrit 25.7 % (35-45); Hemoglobin 8.2 g/dL (11.5-14.3); Mean Corpuscular Hemoglobin 22.1 pg (27-33); Mean Corpuscular Hgb Conc 31.8 g/dL (31-36); Mean Corpuscular Volume 69.5 fL (80-97); Mean Platelet Volume 8.5 fL (7.5-11.2); Platelet Count 150 10^3/uL (150-450); Red Cell Distribution Width 22.9 % (12-17); White Blood Count 3.9 10^3/uL (3.8-11.8)
[2023-05-05 07:22] LABS: Creatinine, Serum 0.62 mg/dL (0.51-0.95); Magnesium 1.4 mg/dL (1.9-2.7); Potassium 4.7 mmol/L (3.5-5.0); eGFR CKD-EPI 93.4 (>60)
[2023-05-05 09:37] VITALS: BP 113/74
[2023-05-05] MEDS: Magnesium Sulf 4 GM/100 ML IV 4,000 MG/100 ML BAG IVPB ONE (10:52)
== END 2023-05-05 15:35 | disposition home or self-care (01) | DRG 394 ==
LOC: EDHOLD 15:14 → ED 15:14 → SUATTDRO 20:36 → EDHOLD 04-28 07:18 → MEDTELE 04-28 08:39 → SUATTDRO 04-29 08:00
PROVIDERS: ADMIT Hospitalist; ATTEND Internal Medicine

== ENCOUNTER 2023-07-31 10:08 | Observation (INO) ==
[2023-07-31] MEDS: Albuterol/Ipratropium NEB.SOL (2.5/0.5 MG) 3 ML NEB.SOLN INH ONE (11:29)
[2023-07-31 11:32] LABS: Mean Corpuscular Hemoglobin 23.7 pg (27-33); Mean Corpuscular Hgb Conc 31.1 g/dL (31-36); Mean Corpuscular Volume 76.1 fL (80-97); Red Blood Count 3.82 10^6/uL (3.63-4.92); Red Cell Distribution Width 20.9 % (12-17); White Blood Count 4.2 10^3/uL (3.8-11.8)
[2023-07-31 11:43] LABS: Albumin 3.7 g/dL (3.2-5.2); Albumin/Globulin Ratio 1.9 (1-3); Calcium 8.8 mg/dL (8.6-10.3); Creatinine, Serum 0.55 mg/dL (0.51-0.95); Globulin 1.9 g/dL (2-4); Potassium 3.9 mmol/L (3.5-5.0); Total Bilirubin 1.9 mg/dL (0.2-1.0); Total Protein 5.6 g/dL (6.4-8.9); eGFR CKD-EPI 96.1 (>60)
[2023-07-31 11:52] LABS: INR 2.07 (0.83-1.13)
[2023-07-31 11:54] LABS: ABS Eosinophils 0.1 10^3/uL (0.0-0.5); ABS Lymphocytes 0.9 10^3/uL (1.0-4.8); ABS Monocytes 0.9 10^3/uL (0.0-0.9); ABS Neutrophils 2.3 10^3/uL (1.5-7.6); ABS Nucleated RBC 0.06 10^3/ul; Basophilic Stippling 1+; Eosinophil % 1.4 %; Lymphocyte % 20.6 %; Mean Platelet Volume 10.2 fL (7.5-11.2); Nucleated Red Blood Cells % 1.3 %/100WBC (0.0-0.8); Platelet Count 110 10^3/uL (150-450); Polychromasia 2+
[2023-07-31] MEDS: Iodixanol (CONTRAST) 320 MG/ML 100 ML SDV IV ONE (12:52)
[2023-07-31 13:36] LABS: High Sensitivity Troponin 1 Hr 9 pg/mL (<15)
[2023-07-31] MEDS: Piperacillin/Tazobac 3.375 BAG 3.375 GM/100 ML BAG IV ONE (14:02)
[2023-07-31 14:32] LABS: C Reactive Protein 5.91 mg/L (<8.01)
[2023-07-31 14:50] LABS: Magnesium 1.5 mg/dL (1.9-2.7)
[2023-07-31] MEDS: Furosemide 20 mg/2 ml IV VIAL IV SLOW PU ONE (15:40)
[2023-07-31] MEDS: Magnesium Sulf 4 GM/100 ML IV 4,000 MG/100 ML BAG IVPB ONE (17:39)
[2023-07-31] MEDS: Sulfur Hexaflouride MICROSPHR 25 MG VIAL IV ONE (20:23)
[2023-07-31] MEDS: cefTRIAXone 1 gm/50 mL D5W 1 GM/50 ML BAG IV SCH (23:33)
[2023-08-01] MEDS: Benzocaine/Menthol LOZ PO PRN (00:37)
[2023-08-01] MEDS: cefTRIAXone 1 gm/50 mL D5W 1 GM/50 ML BAG IV SCH (07:51)
[2023-08-01] MEDS: Potassium Chlor 20 meq TAB.ER PO SCH (12:16)
[2023-08-01] MEDS: Pneumococcal 20-Valent Conj 0.5 ML SYR Vaccine IM ONE (12:19)
[2023-08-01 15:06] LABS: TSH Ultra Thyroid Stim Horm 1.6 mcIU/mL (0.34-5.60)
[2023-08-01] MEDS: Furosemide 40 mg/4 ml IV VIAL IV ONE (18:28)
[2023-08-02] MEDS: guaiFENesin 100 mg/5 ml LIQ unit dose cup PO PRN (05:42)
[2023-08-02 06:19] LABS: Hematocrit 29.1 % (35-45); Hemoglobin 9.1 g/dL (11.5-14.3); Mean Corpuscular Hemoglobin 23.6 pg (27-33); Mean Corpuscular Hgb Conc 31.2 g/dL (31-36); Mean Corpuscular Volume 75.8 fL (80-97); Mean Platelet Volume 9.2 fL (7.5-11.2); Platelet Count 93 10^3/uL (150-450); Red Blood Count 3.84 10^6/uL (3.63-4.92); Red Cell Distribution Width 21.2 % (12-17); White Blood Count 3.8 10^3/uL (3.8-11.8)
[2023-08-02 06:37] LABS: C Reactive Protein 6.19 mg/L (<8.01); Calcium 8.7 mg/dL (8.6-10.3); Creatinine, Serum 0.59 mg/dL (0.51-0.95); Magnesium 1.4 mg/dL (1.9-2.7); Potassium 3.3 mmol/L (3.5-5.0); eGFR CKD-EPI 94.5 (>60)
[2023-08-02] MEDS: Vitamin THERAPEUTIC TAB PO SCH (09:30)
[2023-08-02] MEDS: Magnesium Sulf 4 GM/100 ML IV 4,000 MG/100 ML BAG IVPB ONE (09:53)
[2023-08-02] MEDS: Potassium Chlor 20 meq TAB.ER PO SCH (12:01)
[2023-08-02] MEDS: Furosemide 40 mg/4 ml IV VIAL IV ONE (12:01)
[2023-08-02] MEDS ORDERED: Magnesium Hydroxide LIQ 30 ML UDC PO PRN (17:45)
[2023-08-02] MEDS ORDERED: Polyethylene Glycol 3350 17 GM PACKET PO PRN (17:45)
[2023-08-02] MEDS: Senna TAB 8.6 mg TAB PO PRN (19:03)
[2023-08-02] MEDS: Magnesium Hydroxide LIQ 30 ML UDC PO SCH (21:03)
[2023-08-03 06:31] LABS: Creatinine, Serum 0.58 mg/dL (0.51-0.95); Magnesium 1.6 mg/dL (1.9-2.7); Potassium 3.7 mmol/L (3.5-5.0); eGFR CKD-EPI 94.9 (>60)
[2023-08-03] MEDS: Magnesium Sulfate IV 1GM/100ML 1 GM/100 ML BAG IV ONE (08:32)
[2023-08-03] MEDS: Furosemide 40 mg/4 ml IV VIAL IV SCH (08:32)
[2023-08-03] MEDS: Magnesium Hydroxide LIQ 30 ML UDC PO ONE (12:36)
[2023-08-03 13:26] VITALS: BP 112/43
== END 2023-08-03 18:00 | disposition home or self-care (01) ==
LOC: ED 10:08 → EDHOLD 14:23 → SUATTDRO 14:23 → INTOOBSV 14:23 → SSU 18:30
PROVIDERS: ADMIT Hospitalist; ATTEND Hospitalist

== ENCOUNTER 2024-01-09 13:03 | Inpatient (IN) ==
[2024-01-09 14:35] LABS: INR 2.78 (0.85-1.14)
[2024-01-09 14:54] LABS: ABS Basophils 0.1 10^3/uL (0.0-0.1); ABS Eosinophils 0.1 10^3/uL (0.0-0.5); ABS Lymphocytes 0.4 10^3/uL (1.0-4.8); ABS Neutrophils 6.2 10^3/uL (1.5-7.6); ABS Nucleated RBC 0.01 10^3/ul; Hematocrit 27.7 % (35-45); Hemoglobin 8.9 g/dL (11.5-14.3); Lymphocyte % 4.7 %; Mean Corpuscular Hemoglobin 21.4 pg (27-33); Mean Corpuscular Hgb Conc 32.1 g/dL (31-36); Mean Corpuscular Volume 66.8 fL (80-97); Mean Platelet Volume 7.8 fL (7.5-11.2); Nucleated Red Blood Cells % 0.1 %/100WBC (0.0-0.8); Platelet Count 247 10^3/uL (150-450); Red Blood Count 4.15 10^6/uL (3.63-4.92); Red Cell Distribution Width 17.7 % (12-17); White Blood Count 7.7 10^3/uL (3.8-11.8)
[2024-01-09 14:54] LABS: High Sens Troponin Baseline 8 pg/mL (<15)
[2024-01-09 14:58] LABS: ALT 13 U/L (7-52); AST 18 U/L (13-39); Albumin 3.4 g/dL (3.2-5.2); Albumin/Globulin Ratio 1.7 (1-3); Alkaline Phosphatase 166 U/L (35-149); Anion Gap 11 mmol/L (2-16); Blood Urea Nitrogen 9 mg/dL (6-24); CO2 Carbon Dioxide 25 mmol/L (22-32); Calcium 8.3 mg/dL (8.6-10.3); Chloride 96 mmol/L (101-111); Creatinine, Serum 0.56 mg/dL (0.51-0.95); Glucose 143 mg/dL (70-100); Potassium 4.7 mmol/L (3.5-5.0); Sodium 132 mmol/L (135-145); Total Bilirubin 1.7 mg/dL (0.2-1.0); Total Protein 5.4 g/dL (6.4-8.9); eGFR CKD-EPI 95.1 (>60)
[2024-01-09] MEDS: Magnesium Sulfate 2 gm BAG 2 GM/50 ML BAG IVPB ONE ×2 (15:32→22:10)
[2024-01-09] MEDS: Iodixanol 320 (CONTRAST) 100 ML SDV IV ONE (16:57)
[2024-01-09 20:07] LABS: High Sensitivity Troponin 1 Hr 9 pg/mL (<15)
[2024-01-09 20:37] LABS: Urine Appearance Clear; Urine Bilirubin Negative (Negative); Urine Blood Negative (Negative); Urine Color Yellow; Urine Glucose Negative (Negative); Urine Ketones Negative (Negative); Urine Nitrite Negative (Negative); Urine Protein Trace (Negative); Urine Specific Gravity 1.018 (1.002-1.030); Urine Urobilinogen 2+ (Negative)
[2024-01-09] MEDS ORDERED: Sulfur Hexaflouride MICROSPHR 25 MG VIAL IV PRN (20:45)
[2024-01-09 20:48] LABS: Urine Bacteria Absent /HPF (Absent); Urine Red Blood Cell Trace(0-2/hpf) /HPF (0-Trace); Urine Squamous Epithelial Cell Present /HPF (Absent); Urine White Blood Cell Trace(0-5/hpf) /HPF (0-Trace)
[2024-01-09 22:00] LABS: % Iron Saturation 19 % (15-55); .Transferrin 144 mg/dL (203-362); Iron 38 ug/dL (50-212); Total Iron Binding Capacity 202 mcg/dL (250-450); Unsaturated Iron Binding 164 ug/dL
[2024-01-09] MEDS: Furosemide 20 mg/2 ml IV VIAL IV SLOW PU ONE (22:10)
[2024-01-09 22:23] LABS: Ferritin 507.6 ng/mL (11-307)
[2024-01-09 22:26] LABS: Folate > 20.00 ng/mL (5.90-24.80)
[2024-01-09 22:27] LABS: Vitamin B12 967 pg/mL (180-914)
[2024-01-10] MEDS ORDERED: Insulin LISPRO FOR INSULIN PUMP SUBCUT SCH (01:00)
[2024-01-10 06:06] LABS: ABS Eosinophils 0.2 10^3/uL (0.0-0.5); ABS Lymphocytes 0.5 10^3/uL (1.0-4.8); ABS Monocytes 0.8 10^3/uL (0.0-0.9); ABS Neutrophils 5.6 10^3/uL (1.5-7.6); ABS Nucleated RBC 0.01 10^3/ul; Eosinophil % 2.8 %; Hematocrit 27.6 % (35-45); Hemoglobin 8.9 g/dL (11.5-14.3); Lymphocyte % 7.2 %; Mean Corpuscular Hemoglobin 21.5 pg (27-33); Mean Corpuscular Hgb Conc 32.2 g/dL (31-36); Mean Corpuscular Volume 66.8 fL (80-97); Mean Platelet Volume 7.9 fL (7.5-11.2); Nucleated Red Blood Cells % 0.1 %/100WBC (0.0-0.8); Platelet Count 244 10^3/uL (150-450); Red Blood Count 4.13 10^6/uL (3.63-4.92); Red Cell Distribution Width 17.7 % (12-17); White Blood Count 7.1 10^3/uL (3.8-11.8)
[2024-01-10 06:43] LABS: Calcium 8.4 mg/dL (8.6-10.3); Creatinine, Serum 0.55 mg/dL (0.51-0.95); Magnesium 1.5 mg/dL (1.9-2.7); Potassium 4.3 mmol/L (3.5-5.0); eGFR CKD-EPI 95.5 (>60)
[2024-01-10] MEDS: Metoprolol Succinate XL 200 mg TAB PO SCH (08:08)
[2024-01-10] MEDS: Magnesium Sulf 4 GM/100 ML IV 4,000 MG/100 ML BAG IVPB ONE (08:08)
[2024-01-10] MEDS: Furosemide 20 mg/2 ml IV VIAL IV SLOW PU ONE (11:28)
[2024-01-10 15:26] LABS: C Reactive Protein 92.4 mg/L (<8.01)
[2024-01-11 06:59] LABS: ABS Eosinophils 0.2 10^3/uL (0.0-0.5); ABS Lymphocytes 0.5 10^3/uL (1.0-4.8); ABS Monocytes 0.7 10^3/uL (0.0-0.9); ABS Neutrophils 5.8 10^3/uL (1.5-7.6); ABS Nucleated RBC 0.01 10^3/ul; Eosinophil % 3.2 %; Hematocrit 27.3 % (35-45); Hemoglobin 8.9 g/dL (11.5-14.3); Lymphocyte % 7.2 %; Mean Corpuscular Hemoglobin 21.7 pg (27-33); Mean Corpuscular Hgb Conc 32.5 g/dL (31-36); Mean Corpuscular Volume 66.7 fL (80-97); Mean Platelet Volume 7.9 fL (7.5-11.2); Nucleated Red Blood Cells % 0.2 %/100WBC (0.0-0.8); Platelet Count 240 10^3/uL (150-450); Red Blood Count 4.09 10^6/uL (3.63-4.92); Red Cell Distribution Width 17.9 % (12-17); White Blood Count 7.3 10^3/uL (3.8-11.8)
[2024-01-11 07:07] LABS: Calcium 8.6 mg/dL (8.6-10.3); Creatinine, Serum 0.55 mg/dL (0.51-0.95); Magnesium 1.6 mg/dL (1.9-2.7); Potassium 4.2 mmol/L (3.5-5.0); eGFR CKD-EPI 95.5 (>60)
[2024-01-11] MEDS: Magnesium Sulf 4 GM/100 ML IV 4,000 MG/100 ML BAG IVPB ONE (08:04)
[2024-01-11] MEDS: Furosemide 20 mg/2 ml IV VIAL IV SLOW PU ONE ×2 (10:27→16:52)
[2024-01-12 07:14] LABS: Creatinine, Serum 0.56 mg/dL (0.51-0.95); Magnesium 1.4 mg/dL (1.9-2.7); Potassium 4.6 mmol/L (3.5-5.0); eGFR CKD-EPI 95.1 (>60)
[2024-01-12 09:46] LABS: Glucose Confirmatory 447 mg/dL (70-100)
[2024-01-12] MEDS: Furosemide 20 mg/2 ml IV VIAL IV SLOW PU ONE (10:23)
[2024-01-12] MEDS: Insulin GLARGINE 100 un/ml 10 ml VIAL SUBCUT SCH (16:58)
[2024-01-12] MEDS ORDERED: Dextrose 50% Syringe 50 ml 25 GM/50 ML SYRINGE IV PUSH PRN (17:01)
[2024-01-12 17:36] LABS: Glucose Confirmatory 490 mg/dL (70-100)
[2024-01-13 07:00] LABS: Creatinine, Serum 0.53 mg/dL (0.51-0.95); Magnesium 1.4 mg/dL (1.9-2.7); Potassium 3.7 mmol/L (3.5-5.0); eGFR CKD-EPI 96.4 (>60)
[2024-01-13 07:16] LABS: ABS Eosinophils 0.3 10^3/uL (0.0-0.5); ABS Lymphocytes 0.8 10^3/uL (1.0-4.8); ABS Monocytes 0.9 10^3/uL (0.0-0.9); ABS Neutrophils 4.8 10^3/uL (1.5-7.6); Eosinophil % 4.2 %; Hematocrit 29.5 % (35-45); Hemoglobin 9.6 g/dL (11.5-14.3); Lymphocyte % 11.1 %; Mean Corpuscular Hemoglobin 21.7 pg (27-33); Mean Corpuscular Hgb Conc 32.5 g/dL (31-36); Mean Corpuscular Volume 66.7 fL (80-97); Nucleated Red Blood Cells % 0.1 %/100WBC (0.0-0.8); Platelet Count 271 10^3/uL (150-450); Red Blood Count 4.42 10^6/uL (3.63-4.92); Red Cell Distribution Width 17.4 % (12-17); White Blood Count 6.8 10^3/uL (3.8-11.8)
[2024-01-13 08:14] LABS: Albumin 3.4 g/dL (3.2-5.2); Albumin/Globulin Ratio 1.4 (1-3); Direct Bilirubin 0.3 mg/dL (0.03-0.18); Globulin 2.4 g/dL (2-4); Indirect Bilirubin 0.7 mg/dL (0.3-1.0); Total Protein 5.8 g/dL (6.4-8.9)
[2024-01-13 10:05] LABS: Erythrocyte Sed Rate 60 mm/Hr (0-29)
[2024-01-13 14:00] VITALS: BP 105/59
== END 2024-01-13 17:25 | disposition home or self-care (01) | DRG 291 ==
LOC: ED 13:03 → EDHOLD 13:03 → SUATTDRO 18:37 → MEDTELE 21:28
PROVIDERS: ADMIT Hospitalist; ATTEND Internal Medicine